=== PATIENT | female | born 1965 | race Asian ===

== ENCOUNTER 2016-10-29 05:46 | Day surgery (SDC) | payer BC ==
[~2016-10-29] VITALS: Ht 165.1 cm; Wt 76.2 kg
[~2016-10-29 05:46] MED LIST: AMLO10TA80 PO; ASPI-1159 PO; ATEN-42 PO; ATOR10TA69 PO; METF500T4 PO
[2016-10-29] MEDS ORDERED: OMEG1CAP50 PO (07:38)
[2016-10-29] MEDS ORDERED: SELINIUM PO (07:38)
[2016-10-29] MEDS ORDERED: CHOL20004 PO (07:38)
[2016-10-29] MEDS ORDERED: BUPIVACAINE HCL 0.5% (5MG/ML) 50ML ONE (09:35)
[2016-10-29] MEDS ORDERED: METHYLENE BLUE 50 MG/10 ML AMP IV STA (09:36)
[2016-10-29] MEDS ORDERED: SODIUM CHLORIDE 0.9% 1,000 ML IV SCH ×2 (09:45→10:30)
[2016-10-29] MEDS ORDERED: LIDOCAINE HCL 1% 20ML VIAL (Pyxis) INJ ONE ×2 (10:10→13:50)
[2016-10-29] MEDS ORDERED: MIDAZOLAM HCL 2 MG/2 ML VIAL ONE (10:10)
[2016-10-29] MEDS ORDERED: PROPOFOL 200MG/20ML VIAL IV ONE (10:10)
[2016-10-29] MEDS ORDERED: FENTANYL CITRATE/PF 50MCG/ML 2ML VIAL ONE (10:15)
[2016-10-29] MEDS ORDERED: CEFAZOLIN SODIUM 1000MG/VIAL ONE (10:17)
[2016-10-29] MEDS ORDERED: ONDANSETRON HCL 4MG/2ML VIAL ONE (10:18)
[2016-10-29] MEDS ORDERED: SODIUM CHLORIDE 0.9% 10ML VIAL ONE (10:19)
[2016-10-29] MEDS ORDERED: HYDROMORPHONE HCL/PF 2MG/ML CPJ IV PRN (10:30)
[2016-10-29] MEDS ORDERED: ONDANSETRON HCL 4MG/2ML VIAL IV PRN (10:30)
[2016-10-29] MEDS ORDERED: SKIN ADHESIVE 0.7 GM EA TOP ONE ×2 (10:44→12:54)
[2016-10-29] MEDS ORDERED: SODIUM BICARBONATE 4.2% 5 MEQ/10 ML DISP.SYRIN IV ONE (13:50)
== END 2016-10-29 12:45 | disposition home or self-care (01) ==
LOC: OR 05:46
PROVIDERS: ATTEND Surgery
DX: D05.12 Intraductal carcinoma in situ of left breast (principal); E78.00 Pure hypercholesterolemia, unspecified
CPT/HCPCS: 19125; 19281; 38525; 78195; 82962; 88307; 88309; 88331; A4216; G0168; J0690; J2250; J2405; J3010; J3490; 88305; J2704; Q9968

== ENCOUNTER → 2018-08-30 | Outpatient (CLI) | payer BC ==
[~2018-08-30] MED LIST changes: +CHOL20004 PO; +LIDOCAINE HCL 1% 20ML VIAL (Pyxis) INJ ONE; +METF-414 PO; -METF500T4 PO; +OMEG1CAP50 PO; +SELINIUM PO; +SODIUM BICARBONATE 4% (2.4MEQ) 5ML VIAL IV ONE
== END | disposition home or self-care (01) ==
LOC: RAD 10:23
DX: E04.9 Nontoxic goiter, unspecified (principal); E11.9 Type 2 diabetes mellitus without complications; I10 Essential (primary) hypertension; E78.00 Pure hypercholesterolemia, unspecified; Z90.710 Acquired absence of both cervix and uterus
CPT/HCPCS: 10005; 88172; 88173; J3490; 10022

== ENCOUNTER → 2020-01-01 | Outpatient (CLI) | payer BC ==
[~2020-01-01] MED LIST changes: -ASPI-1159 PO; +ASPI-1497 PO; -LIDOCAINE HCL 1% 20ML VIAL (Pyxis) INJ ONE; -SODIUM BICARBONATE 4% (2.4MEQ) 5ML VIAL IV ONE
== END | disposition home or self-care (01) ==
LOC: LAB 08:15
PROVIDERS: ATTEND Otolaryngology Otolaryngology/Facial Plastic Surgery
DX: Z11.59 Encounter for screening for other viral diseases (principal)
CPT/HCPCS: C9803; U0003

== ENCOUNTER → 2020-01-03 | Day surgery (SDC) | payer BC ==
[~2020-01-03] MED LIST changes: +LIDOCAINE HCL 1% 20ML VIAL (Pyxis) INJ ONE; +SODIUM BICARBONATE 4% (2.4MEQ) 5ML VIAL IV ONE
== END | disposition home or self-care (01) ==
LOC: RAD 10:42
PROVIDERS: ATTEND Otolaryngology Otolaryngology/Facial Plastic Surgery
DX: E04.2 Nontoxic multinodular goiter (principal); Z79.82 Long term (current) use of aspirin; Z79.899 Other long term (current) drug therapy; Z98.890 Other specified postprocedural states; Z88.8 Allergy status to other drugs, medicaments and biological substances
CPT/HCPCS: 10005; 10006; 88307; J3490